=== PATIENT | male | born 2000 | race African-American/Black ===

== ENCOUNTER 2024-06-03 12:41 | Emergency (ER) | payer BC, SELFPAY ==
[2024-06-03 12:45] VITALS: BP 128/84; PULSE 106; RESP 12; TEMP 38.1; O2SAT 94
[2024-06-03 12:48] VITALS: TEMP 38.1; O2SAT 94
--- NOTE | 2024-06-03 13:47 | ED.GENADUL_ITS ---
Discharge Plan Disposition Patient Disposition: Home Condition: Stable Discharge Details Clinical Impression: Flu Primary Care Provider: Henry Bates ED Provider: Holden Adams Home Meds and New Rx's Prescriptions: New oseltamivir [Tamiflu] 75 mg capsule 75 mg PO BID 5 Days Qty: 10 0RF Continued albuterol sulfate [ProAir HFA] 1 PUFF HFA aerosol inhaler 2 puff Inhalation PRN PRN Discharge Instructions Instructions: Flu, Adult ED Additional Instructions: You are flu positive. You have elected to take Tamiflu, please take as directed. Rest, plenty of fluids, [id number] medication for symptomatic control. Please watch for new or worsening symptoms and return to the ER for any concerns. Otherwise I recommend contacting your primary care provider to make aware of your ER visit, ongoing symptoms, and potential need for outpatient reevaluation. HPI General Mode of arrival: ambulatory . Date/Time Provider Initiated Documentation: 06/03/24 13:12 . Limitations to Documentation: no limitations . Information obtained by: patient . History of Present Illness 23 year old M presents to the emergency department with the chief complaint of [place] symptoms, described as moderate, with intensity rated at 4. Quality is described as aching (Body aches), Patient reports no radiation. Patient started experiencing this day(s) (2) and it has been constant. No relieving factors improve symptom(s), No exacerbating factors reported . Patient notes cough, fever/chills (Subjective fever) and malaise. Patient did receive the following treatments prior to arrival, other ([id number] medication for symptoms) Related Data Home Medications ?Medication ?Instructions ?Recorded ?Confirmed albuterol sulfate 90 mcg/actuation 2 puff inhalation PRN PRN 08/18/12 06/03/24 aerosol inhaler (ProAir HFA) oseltamivir 75 mg capsule (Tamiflu) 75 mg PO BID 5 days #10 caps 06/03/24 Previous Rx's ?Medication ?Instructions ?Recorded oseltamivir 75 mg capsule (Tamiflu) 75 mg PO BID 5 days #10 caps 06/03/24 Allergies Allergy/AdvReac Type Severity Reaction Status Date / Time peanut Allergy Severe Anaphylaxsi Unverified 06/03/24 12:50 s General Stated Complaint: RespSymp DAVID: 3 Review of Systems Constitutional Constitutional: Reports chills and Reports fever(s) Eyes Eyes: Denies eye discharge ENT Ears, Nose, Mouth, and Throat: Reports nasal discharge and Denies sore throat Cardiovascular Cardiovascular: Denies chest pain and Denies dyspnea Respiratory Respiratory: Reports cough and Denies dyspnea Gastrointestinal Gastrointestinal: Denies abdominal pain, Denies nausea and Denies vomiting Musculoskeletal Musculoskeletal: Reports myalgias Integumentary/Breasts Skin/Breast: Denies rash Exam Const General: cooperative, healthy appearing, comfortable and no acute distress Orientation: alert and awake [facility] Head: normal to inspection, normocephalic and atraumatic Ears: external ears normal, TM's normal bilaterally and EAC's normal General nose exam: external nose normal Face and sinus: normal facial exam Mouth: oral mucosae normal and moist mucous membranes Teeth and gingiva: dentition normal Throat: posterior oropharynx normal Eyes General: appearance normal, both eyes and all related structures Conjunctivae: conjunctivae normal Neck Neck: normal visual inspection, full ROM, no lymphadenopathy, no meningeal signs, trachea midline and supple Resp Effort & Inspection: normal respiratory effort and able to speak in complete sentences Auscultation: clear to auscultation bilaterally Cardio Rate: regular rate Rhythm: regular rhythm Skin General skin exam: no rashes or lesions noted Neuro General: patient alert, patient awake, moves all extremities and no focal motor deficits Cognition: normal cognition Speech: speech normal Sensory Exam: no sensory deficits noted Psych Appearance: grossly normal Mental Status: mental status grossly normal Course Vital Signs Vital signs: Vital Signs Temperature 38.1 C H 06/03/24 12:45 Pulse 106 H 06/03/24 12:45 Respiratory Rate 12 06/03/24 12:45 Blood Pressure 128/84 06/03/24 12:45 Pulse Oximetry 94 06/03/24 12:45 Temperature 38.1 C H 06/03/24 12:48 Temperature Source Oral 06/03/24 12:48 Pulse 106 H 06/03/24 12:45 Respiratory Rate 12 06/03/24 12:45 Respiratory Effort Short of Breath 06/03/24 13:20 Respiratory Depth Normal 06/03/24 13:20 Blood Pressure 128/84 06/03/24 12:45 Blood Pressure Position Sitting 06/03/24 12:45 Pulse Oximetry 94 06/03/24 12:48 Oxygen Delivery Method Room Air 06/03/24 12:48 Oxygen Flow Rate 0 06/03/24 12:45 Pain Level 8 06/03/24 12:45 Medical Decision Making 23-year-old gentleman, Bernie history of mild asthma, presents for 2-day history of subjective fever, body aches, mild cough, simply not feeling well. 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 He did take Mucinex yesterday with little relief. He used his inhaler once yesterday but denies any ongoing wheezing or shortness of breath. Clinically he appears well, speaking in full sentences, nontoxic. Pulse and triage of 106 but during my evaluation was in the 80s. Respirations 12, O2 sat 94% on room air, temperature of 38.1. Will obtain rapid flu and COVID. Extremely low suspicion for acute bacterial pneumonia, will not pursue chest x-ray at this time. Flu a positive, COVID-negative. Discussed findings with patient. Patient wanted to contact his mother to decide whether or not to take Tamiflu, after this discussion, wishes to be prescribed the Tamiflu. Encouraged rest, ample fluids, [id number] medications for symptomatic control. Encouraged to monitor for new or evolving symptoms and return to the ER. Patient comfortable with this plan and has no additional questions or concerns. Standard discharge and return precautions were provided. Patient understands, is agreeable to this plan, and has no additional questions or concerns upon discharge. This documentation was generated using [employer] dictation system, please disregard any oddities of phrase or misspellings. Quality:SDOH Health Related Social Needs: No Data to Display PFSH All Active Problems (Updated 06/03/24 @ 14:08 by GOPAL Ling) Flu (Acute) Medical History Asthma Surgical History Myringotomy w/ PE (pressure equalizing) tubes Social History Smoking/Tobacco Use Status: Never Smoking risk assessment performed?: Yes Alcohol Intake: current Alcohol Intake frequency: holidays/special occasions only Drug use: Never Substance use type: does not use Housing: other Do you feel safe at home: Yes Do you feel safe in your relationship?: Yes
[2024-06-03 13:55] VITALS: BP 103/65; PULSE 82; O2SAT 94
== END 2024-06-03 14:17 | disposition home or self-care (01) ==
PROVIDERS: Emergency Provider Physician Assistant; PCP Internal Medicine
DX: J11.1 Influenza due to unidentified influenza virus with other respiratory manifestations (principal); R50.9 Fever, unspecified
CPT/HCPCS: 99283